=== PATIENT | female | born 1995 | race Caucasian/White ===

== ENCOUNTER → 2018-06-28 | Outpatient (CLI) | payer BC ==
[~2018-06-28] MED LIST: DESO1TAB74 PO; FLU150 PO; PRED-1 PO
--- NOTE | 2018-06-28 14:23 | RADIOLOGY IMAGING REPORT ---
FACILITY: [facility] PATIENT NAME: Steff Carrera : 1995 MR: [id number] V: [id number] EXAM DATE: ORDERING PHYSICIAN: MARISOL ALCARAZ TECHNOLOGIST: [facility] Patient: Steff Carrera : 1995 Visit/Account:[id number] Date of Sevice: 06/28/[address] scan without contrast HISTORY: Trauma, headache COMPARISONS: None TECHNIQUE: Non-contrast head CT was performed with sagittal and coronal reformations. One of the following dose optimization techniques was utilized in the performance of this exam: autom ated exposure control; adjustment of the mA and/or kV according to patient size; or use of iterative reconstruction technique. Specific details can be referenced in the facility's radiology CT exam ope rational policy. FINDINGS: No intracranial hemorrhage, hydrocephalus or midline shift. The basal cisterns, convexity sulci and g ray-white differentiation are maintained. Normal orbital soft tissues. No apparent parenchymal abnormality. The mastoid air cells are clear. The paranasal sinuses are clear. The osseous structures are normal . IMPRESSION: No acute intracranial abnormality. Report Dictated By: Woody Flynn MD at 06/28/2018 2:15 PM Report E-Signed By: Woody Flynn MD at 06/28/2018 2:18 PM [id number]
== END ==
LOC: CT 13:26
PROVIDERS: ATTEND Nurse Practitioner Family
DX: S09.90XA Unspecified injury of head, initial encounter (principal)
CPT/HCPCS: 70450

== ENCOUNTER → 2018-09-27 | Outpatient (CLI) | payer BC | LOC: LAB 16:57 | PROVIDERS: ATTEND Nurse Practitioner Family | DX: I73.00 Raynaud's syndrome without gangrene (principal); M25.50 Pain in unspecified joint; R94.6 Abnormal results of thyroid function studies | CPT/HCPCS: 36415; 84443; 85651; 86038; 86140; 86430 ==

== ENCOUNTER → 2019-03-02 | Outpatient (CLI) | payer BC ==
[~2019-03-02] MED LIST changes: +NYST15CR32 TP
[2019-03-02 17:27] LABS: PLATELET COUNT, AUTOMATED 360 K/uL (150-450)
== END ==
LOC: LAB 16:24
PROVIDERS: ATTEND Nurse Practitioner Family
DX: G47.19 Other hypersomnia (principal); R10.9 Unspecified abdominal pain; L65.9 Nonscarring hair loss, unspecified
CPT/HCPCS: 36415; 82040; 82247; 82310; 82374; 82435; 82565; 82947; 84075; 84132; 84155; 84295; 84439; 84443; 84450; 84460; 84480; 84520; 85025

== ENCOUNTER → 2019-03-02 | Outpatient (CLI) | payer BC | LOC: LAB 16:28 | PROVIDERS: ATTEND Nurse Practitioner Family | DX: N89.8 Other specified noninflammatory disorders of vagina (principal); R10.2 Pelvic and perineal pain; G47.19 Other hypersomnia; L65.9 Nonscarring hair loss, unspecified | CPT/HCPCS: 81001; 87210; 87491; 87591 ==